=== PATIENT | female | born 1960 | race Caucasian/White ===

== ENCOUNTER 2020-10-14 11:33 | Emergency (ER) | payer OTHER, SELFPAY ==
[2020-10-14 11:38] VITALS: BP 124/105; PULSE 84; RESP 14; TEMP 37.1; O2SAT 100
--- NOTE | 2020-10-14 12:06 | ED.SKABFB ---
HPI - Skin/Abscess/Foreign Bdy General Chief complaint: Skin/Abscess/Foreign Body Stated complaint: Possible poison mary Time Seen by Provider: 10/14/20 12:24 Source: patient and RN notes reviewed Mode of arrival: ambulatory Limitations: no limitations History of Present Illness HPI narrative: 60-year-old female presents with concern for possible poison mary. She reports approximately 1 week ago she was cleaning weeds, the next day noticed a rash on her arm. Reports the rash is spread to both arms, both legs, torso. Reports she has been using calamine lotion with little relief. She denies any difficulty breathing, difficulty swallowing, swollen lips, swollen tongue, nausea, vomiting, diarrhea, fever. MD complaint: rash Related Data Home Medications Medication Instructions Recorded Confirmed amitriptyline 25 mg PO DAILY 10/14/20 10/14/20 duloxetine 30 mg PO DAILY 10/14/20 10/14/20 fluticasone furoate-vilanterol 1 inh INHALATION DAILY 10/14/20 10/14/20 [Breo Ellipta] montelukast 10 mg PO DAILY 10/14/20 10/14/20 simvastatin 10 mg PO DAILY 10/14/20 10/14/20 Allergies Allergy/AdvReac Type Severity Reaction Status Date / Time No Known Allergies Allergy Unknown Verified 10/14/20 11:56 Review of Systems Review of Systems: Narrative: CONSTITUTIONAL: Denies malaise, chills, sweats, or fever. EYES: Denies visual changes, redness, or discharge. ENT: Denies swollen lips, swollen tongue CARDIOVASCULAR: Denies chest pain, palpitations, or edema. RESPIRATORY: Denies cough or dyspnea. GASTROINTESTINAL: Denies abdominal pain, nausea, vomiting, diarrhea SKIN: Reports itchy rash on both arms, legs, torso MUSCULOSKELETAL: Denies myalgia. All systems reviewed & are unremarkable except as noted in HPI and below PMFSH Comments At time of signature, agree with nursing past medical, surgical, social and family history. There is no relevant family history pertinent to the presenting complaint Exam Narrative: Exam Narrative: GENERAL: Well-appearing, well-nourished, and in no acute distress. HEAD: Normocephalic, atraumatic. EYES: PERRLA, conjunctivae clear, and EOMI. ENT: Mucous membranes moist. Oropharynx without edema, erythema or lesions. NECK: Supple. No lymphadenopathy CHEST: Clear to auscultation. No respiratory distress. HEART: Regular rate and rhythm. SKIN: Warm, dry. Scattered patches of papular vesicular rash with areas of plaque noted to bilateral arms and legs NEURO: Alert and oriented x3. PSYCH: Normal mood and affect Course Course Emergency Course: Patient is aware of diagnosis, understands and agrees to treatment plan. Anticipatory guidance given. Patient agrees to follow-up as directed and is aware of reasons to seek care at the emergency department. Portions of this record may have been created with voice recognition software Vital Signs Vital signs: Vital Signs Temperature 98.8 F 10/14/20 11:38 Pulse Rate 84 10/14/20 11:38 Respiratory Rate 14 10/14/20 11:38 Blood Pressure 124/105 H 10/14/20 11:38 Pulse Oximetry 100 10/14/20 11:38 Temperature 98.8 F 10/14/20 11:38 Pulse Rate 84 10/14/20 11:38 Respiratory Rate 14 10/14/20 11:38 Blood Pressure 124/105 H 10/14/20 11:38 Pulse Oximetry 100 10/14/20 11:38 Reviewed. MDM - Skin/Abscess/Foreign Bdy MDM Narrative Medical decision making narrative: Does not appear at this time to be erythema multiforme, bullous, SJS, TEN; no evidence at this time to suggest RMSF, endocarditis or Lyme disease; patient looks well, nontoxic and is tolerating oral intake; no neurologic signs or symptoms; no headache, photophobia or neck pain; afebrile; appropriate for initial outpatient treatment; discussed the importance of follow-up, patient agrees; question, viral exanthema, contact dermatitis, allergic dermatitis, eczema, urticaria, tinea. No soft palate or uvula edema, no tongue, lip edema or other mucosal involvement, no respiratory compromise, no strid
== END 2020-10-14 12:35 | disposition home or self-care (01) ==
PROVIDERS: Emergency Provider Nurse Practitioner; PCP Internal Medicine
DX: L24.7 Irritant contact dermatitis due to plants, except food (principal); J45.909 Unspecified asthma, uncomplicated; G62.9 Polyneuropathy, unspecified; K21.9 Gastro-esophageal reflux disease without esophagitis; F41.9 Anxiety disorder, unspecified; F32.9 Major depressive disorder, single episode, unspecified
CPT/HCPCS: 99213; G0463

== ENCOUNTER 2023-01-13 09:54 | Emergency (ER) | payer OTHER, SELFPAY ==
[2023-01-13 10:00] VITALS: BP 148/70; PULSE 99; RESP 20; TEMP 36.9; O2SAT 97
--- NOTE | 2023-01-13 10:37 | ED.URI ---
HPI - URI/Sore Throat General Chief Complaint: Upper Respiratory Infection Stated Complaint: Cough/Sore Throat Time Seen by Provider: 01/13/23 10:20 Source: patient, RN notes reviewed and old records reviewed Mode of arrival: ambulatory Limitations: no limitations History of Present Illness HPI Narrative: 62 year old female presents to [facility] care with complaints of 5 day history of sore throat, cough, sneezing, sinus drainage with symptoms increasing. Patient reports that she has been taking Xyzal and also Mucinex for her symptoms with no improvement or resolution. Patient reports history of asthma and sinusitis. Patient states that she feels like she has had low grade fevers with some chills and sweats. Patient reports that cough is at times productive, denies any acute shortness of breath or any noted wheezing. MD elicited complaint: cough, sore throat, rhinorrhea, nasal congestion and sinus pain Pertinent past history: sinusitis and asthma Onset (ago): day(s) (5) Pain scale (0-10): 5 Able to tolerate fluids by mouth: Yes Treatments prior to arrival: other (XYZAL and Mucinex) Related Data Home Medications Medication Instructions Recorded Confirmed amitriptyline 25 mg tablet 25 mg PO DAILY 10/14/20 10/14/20 duloxetine 30 mg capsule,delayed 30 mg PO DAILY 10/14/20 10/14/20 release fluticasone furoate 100 1 inh inhalation DAILY 10/14/20 10/14/20 mcg-vilanterol 25 mcg/dose inhalation powder (Breo Ellipta) montelukast 10 mg tablet 10 mg PO DAILY 10/14/20 10/14/20 simvastatin 10 mg tablet 10 mg PO DAILY 10/14/20 10/14/20 omeprazole 40 mg capsule,delayed mg 01/13/23 release Allergies Allergy/AdvReac Type Severity Reaction Status Date / Time No Known Allergies Allergy Unknown Verified 10/14/20 11:56 Review of Systems Review of Systems: CONSTITUTIONAL: Reports malaise, chills, sweats, or fever. EYES: Denies visual changes, redness, or discharge. ENT: Reports rhinorrhea, congestion, sinus pain, no otalgia and positive for sore throat. CARDIOVASCULAR: Denies chest pain, palpitations, or edema. RESPIRATORY: Reports cough.? Denies acute dyspnea. GASTROINTESTINAL: Denies abdominal pain, nausea, vomiting, diarrhea SKIN: Denies rash or itching. MUSCULOSKELETAL: Denies myalgia. NEUROLOGIC: Denies headache. All systems reviewed & are unremarkable except as noted in HPI and below PMFSH Past Medical History Medical History (Updated 01/14/23 @ 09:11 by Belkys Montes De Oca NP) Acid reflux Anxiety and depression Asthma Environmental allergies Peripheral neuropathy Trigger finger repair Surgical History Surgical History (Updated 01/13/23 @ 11:05 by Belkys Montes De Oca NP) H/O left knee surgery Social History Social History (Updated 01/13/23 @ 11:04 by Belkys Montes De Oca NP) Smoking status: Never smoker Substance use type: does not use Gender identity (if verbalized by the patient): Female Comments At time of signature, agree with nursing past medical, surgical, social and family history. There is no relevant family history pertinent to the presenting complaint Exam Narrative: GENERAL: Well-appearing, well-nourished, and in no acute distress. HEAD: Normocephalic EYES: PERRLA, conjunctivae clear ENT: Nares clear, turbinates edematous and erythematous, clear discharge. Mucous membranes moist. TM pearly gardiner with dull light reflex bilaterally; no tragal tenderness. Oropharynx erythematous without lesions. Tonsils not enlarged and without exudate, no drooling, no hoarseness, no trismus, uvula midline.post nasal drainage NECK: Supple. No lymphadenopathy CHEST: Clear to auscultation, breath sounds equal. No wheezing, rhonchi, rales, or stridor. No respiratory distress, speaks in full sentences.SAO2 97% on room air HEART: Regular rate and rhythm. No murmur heard. SKIN: Warm, dry, no rash. NEURO: Alert and oriented x3. PSYCH: Normal mood and affect Course Cou
== END 2023-01-13 10:57 | disposition home or self-care (01) ==
PROVIDERS: Emergency Provider Registered Nurse; PCP Internal Medicine
DX: J32.9 Chronic sinusitis, unspecified (principal); J02.9 Acute pharyngitis, unspecified; K21.9 Gastro-esophageal reflux disease without esophagitis; J45.909 Unspecified asthma, uncomplicated; G62.9 Polyneuropathy, unspecified; F41.9 Anxiety disorder, unspecified; F32.A Depression, unspecified
CPT/HCPCS: 87081; 87880; 99213; G0463

== ENCOUNTER 2023-07-26 12:47 | Emergency (ER) | payer MEDICARE, SELFPAY ==
[2023-07-26 13:00] VITALS: BP 138/62; PULSE 100; RESP 20; TEMP 37.9; O2SAT 98
--- NOTE | 2023-07-26 13:34 | ED.URI ---
HPI - URI/Sore Throat General Chief Complaint: Upper Respiratory Infection Stated Complaint: Fever/Chills/Nausea History of Present Illness HPI Narrative: Pt is a 63 y/o female, PMHx of asthma, presents to with 24 hour hx of fevers, productive cough and painful breathing, without associated CP, SOB, orthopnea, palpitations, sinus pressure, sinus pain, sore throat or rhinorrhea. she denies known sick contacts or COV exposures. She took a dose of APAP last HS. She denies any other modifying factors. she does not smoke. she has not traveled. Related Data Home Medications Medication Instructions Recorded Confirmed amitriptyline 25 mg tablet 25 mg PO QHS 10/14/20 07/26/23 fluticasone furoate 100 1 inh inhalation DAILY 10/14/20 07/26/23 mcg-vilanterol 25 mcg/dose inhalation powder (Breo Ellipta) montelukast 10 mg tablet 10 mg PO DAILY 10/14/20 07/26/23 simvastatin 10 mg tablet 10 mg PO DAILY 10/14/20 07/26/23 omeprazole 40 mg capsule,delayed 40 mg PO DAILY 01/13/23 07/26/23 release Allergies Allergy/AdvReac Type Severity Reaction Status Date / Time No Known Allergies Allergy Unknown Verified 07/26/23 13:12 Review of Systems Respiratory: Comments: refer to [facility] Past Medical History Medical History Acid reflux Anxiety and depression Asthma Environmental allergies Peripheral neuropathy Trigger finger repair Surgical History Surgical History (Updated 01/13/23 @ 11:05 by Belkys Montes De Oca NP) H/O left knee surgery Social History Social History (Updated 01/13/23 @ 11:04 by Belkys Montes De Oca NP) Smoking status: Never smoker Substance use type: does not use Gender identity (if verbalized by the patient): Female Exam Const: General: healthy appearing, no acute distress and alert Nutritional Appearance: well nourished Orientation/consciousness: patient oriented x3 Limitations: no limitations HENMT: Head: normal to inspection Ears: external ears normal and TM's normal bilaterally Face and sinus: normal facial exam and sinuses nontender Mouth: Yes Normal oral and palatal mucosa present Throat: posterior oropharynx normal and uvula midline Eyes: Conjunctivae: conjunctivae normal EOM: EOMs intact bilaterally Neck: Neck: normal visual inspection and no lymphadenopathy Resp: Effort & Inspection: normal respiratory effort Auscultation: crackles on the left in the mid lung buck and in the lower lung buck Other: she is not labored, she has good air movement throughout the right and upper left lung buck otherwise, no wheezing noted Cardio: Rate: regular rate Rhythm: regular rhythm GI: GI Palp: Yes Soft to palpation, No Tenderness to palpation present (GI), No Guarding due to palpation present (GI), No Rigid due to palpation, No Hernia present, No Palpable mass present and No Rebound tenderness present Skin: General skin exam: normal color Rashes: no rashes Wounds: no wounds Neuro: General: patient oriented x3, moves all extremities, no meningeal signs, no focal motor deficits and CN's II-XI intact bilaterally Cranial nerves: Yes Nystagmus not present Speech: normal speech Gait exam (Neuro): Normal gait present Extrem: General: normal to inspection, no clubbing, cyanosis or edema and no pedal edema Other: no calf tTP, no palpable cord Course Course Emergency Course: influenza and COV negative. chest imaging is not available here today. Plan therefore to treat empirically for suspected CAP, rocephin and Zithromax, close FU with PCP Friday, ER if condition worsens. Pt is agreeable with plan. Level of Care: Express Care Visit ([id number]) Vital Signs Vital signs: Vital Signs Temperature 37.9 C H 07/26/23 13:00 Pulse Rate 100 07/26/23 13:00 Respiratory Rate 20 07/26/23 13:00 Blood Pressure 138/62 07/26/23 13:00 Pulse Oximetry 98 07/26/23 13:00 Oxygen Delivery Room Air 07/26/23 13:00
[2023-07-26] MEDS: cefTRIAXone 1 GM, LIDOCAINE HCL 1% LOCAL INJ 2.1 ML IM (13:41)
== END 2023-07-26 13:57 | disposition home or self-care (01) ==
PROVIDERS: Emergency Provider Nurse Practitioner Family; PCP Internal Medicine
DX: R05.9 Cough, unspecified (principal); R09.89 Other specified symptoms and signs involving the circulatory and respiratory systems; Z20.822 Contact with and (suspected) exposure to COVID-19; K21.9 Gastro-esophageal reflux disease without esophagitis; J45.909 Unspecified asthma, uncomplicated; G62.9 Polyneuropathy, unspecified
CPT/HCPCS: 87426; 87804; 96372; 99213; G0463; J0696